=== PATIENT | female | born 1965 | race Caucasian/White ===

== ENCOUNTER 2023-01-29 06:57 | Emergency (ER) | payer BC ==
[2023-01-29] MEDS ORDERED: Ketorolac 60 MG/2 ML SDV IM ONE (07:45)
[2023-01-29] MEDS ORDERED: Ondansetron 4 MG/2 ML SDV IM ONE (07:45)
[2023-01-29] MEDS ORDERED: Midazolam 1 MG/ML 5 ML SDV IVPUSH ONE (08:19)
[2023-01-29] MEDS ORDERED: Sodium Chloride 0.9% 10 ML Syringe FLUSH PRN (08:24)
[2023-01-29] MEDS ORDERED: Midazolam 1 MG/ML 2 ML SDV IVPUSH ONE ×2 (08:30→09:00)
[2023-01-29] MEDS ORDERED: fentaNYL 100 MCG/2 ML SDV ONE (08:45)
[2023-01-29] MEDS ORDERED: fentaNYL 100 MCG/2 ML SDV IVPUSH ONE (08:47)
[2023-01-29] MEDS ORDERED: Naloxone 0.4 MG/ML SDV IVPUSH PRN (08:47)
== END 2023-01-29 10:20 | disposition home or self-care (01) ==
LOC: JD.ED 06:57
DX: S43.014A Anterior dislocation of right humerus, initial encounter (principal); Z79.899 Other long term (current) drug therapy; X50.1XXA Overexertion from prolonged static or awkward postures, initial encounter
CPT/HCPCS: 23650; 73020-26-RT; 73020-RT; 73030-26-RT; 73030-RT; 96372; 99283-25; J1885; J2250; J2405; J3010

== ENCOUNTER 2023-12-16 09:18 | Day surgery (SDC) | payer BC ==
[~2023-12-16 09:18] MED LIST: Lidocaine 1% 4 ML ONE; Lidocaine 1% PF 2 ML SDV ONE; Midazolam 1 MG/ML 2 ML SDV ONE; Propofol 200 MG/20 ML SDV ONE; Sodium Chloride 0.9% 10 ML Syringe FLUSH PRN; Sodium Chloride 0.9% 10 ML Syringe FLUSH SCH
[2023-12-16] MEDS: Lactated Ringers 1,000 ML IV SCH (09:45)
[2023-12-16] MEDS ORDERED: Lidocaine 1% 2 ML ONE (10:24)
== END 2023-12-16 11:27 | disposition home or self-care (01) ==
LOC: JD.SDS 09:18
PROVIDERS: ATTEND Surgery
DX: Z12.11 Encounter for screening for malignant neoplasm of colon (principal); K31.7 Polyp of stomach and duodenum; K21.00 Gastro-esophageal reflux disease with esophagitis, without bleeding; K64.0 First degree hemorrhoids; E78.00 Pure hypercholesterolemia, unspecified; Z79.899 Other long term (current) drug therapy
CPT/HCPCS: 43239; 45378; J2250; J2704; J7120; 00813; J3490

== ENCOUNTER 2024-02-10 07:30 | Observation (INO) | payer BC ==
[~2024-02-10 07:30] MED LIST changes: -Lidocaine 1% 4 ML ONE; -Lidocaine 1% PF 2 ML SDV ONE; -Midazolam 1 MG/ML 2 ML SDV ONE; -Propofol 200 MG/20 ML SDV ONE; -Sodium Chloride 0.9% 10 ML Syringe FLUSH SCH
[2024-02-10] MEDS: Lactated Ringers 1,000 ML IV SCH ×2 (09:40→21:00)
[2024-02-10 09:48] LABS: BASOPHILS ABSOLUTE AUTO 0.1 K/mm3 (0.0-0.2); BASOPHILS PERCENT AUTO 0.6 % (0.0-1.0); EOSINOPHILS ABSOLUTE AUTO 0.2 K/mm3 (0.0-0.4); EOSINOPHILS PERCENT AUTO 1.9 % (0.0-6.0); HEMATOCRIT 41.4 % (37.0-47.0); HEMOGLOBIN 13.8 gm/dl (12.0-16.0); IMMATURE GRAN ABSOLUTE AUTO 0.02 K/mm3 (0.00-0.05); IMMATURE GRAN PERCENT AUTO 0.2 % (0.0-0.4); LYMPHOCYTES ABSOLUTE AUTO 1.6 K/mm3 (1.0-4.8); LYMPHOCYTES PERCENT AUTO 18.8 % (24.0-44.0); MEAN CORPUSCULAR HEMOGLOBIN 29.7 pg (28.0-32.0); MEAN CORPUSCULAR HGB CONC 33.3 g/dl (32.0-36.0); MEAN PLATELET VOLUME 8.5 fl (9.4-12.3); MONOCYTES ABSOLUTE AUTO 0.6 K/mm3 (0.0-0.8); MONOCYTES PERCENT AUTO 6.4 % (0.0-8.0); NEUTROPHILS ABSOLUTE AUTO 6.2 K/mm3 (1.8-7.7); NEUTROPHILS PERCENT AUTO 72.1 % (41.0-71.0); PLATELET COUNT,PLT 259 K/mm3 (150-400); RED BLOOD CELL COUNT 4.65 M/mm3 (4.10-5.30); WHITE BLOOD CELL COUNT,WBC 8.56 K/mm3 (3.9-11.3)
[2024-02-10 10:01] LABS: ANION GAP 14.7 (5-15); BLOOD UREA NITROGEN,BUN 10 mg/dL (7-18); BUN/CREATININE RATIO 11.1 (14-18); CALCIUM 9.4 mg/dL (8.5-10.1); CARBON DIOXIDE,CO2 27 mEq/L (21-32); CHLORIDE,CL 101 mEq/L (98-107); CREATININE 0.9 mg/dL (0.55-1.02); ESTIMATED GFR 75 mL/min (>60); GLUCOSE RANDOM 87 mg/dL (70-99); SODIUM,NA 139 mEq/L (136-145)
[2024-02-10 10:05] LABS: POTASSIUM,K 3.7 mEq/L (3.5-5.1)
[2024-02-10] MEDS ORDERED: Propofol 200 MG/20 ML SDV ONE ×2 (10:36→13:50)
[2024-02-10] MEDS ORDERED: Midazolam 1 MG/ML 2 ML SDV ONE (10:36)
[2024-02-10] MEDS ORDERED: Ondansetron 4 MG/2 ML SDV ONE (10:36)
[2024-02-10] MEDS ORDERED: fentaNYL 250 MCG/5 ML SDV ONE (10:36)
[2024-02-10] MEDS ORDERED: Rocuronium 50 MG/5 ML Vial ONE ×2 (10:36→13:47)
[2024-02-10] MEDS ORDERED: Dexamethasone 4 MG/ML 5 ML MDV ONE (10:36)
[2024-02-10] MEDS ORDERED: Lidocaine 1% 5 ML VIAL ONE (10:36)
[2024-02-10] MEDS ORDERED: Ketorolac 30 MG/ML SDV ONE ×2 (10:43→14:41)
[2024-02-10] MEDS ORDERED: Sugammadex Sodium 200 MG/2 ML VIAL IV ONE ×2 (10:43→14:41)
[2024-02-10] MEDS ORDERED: fentaNYL 100 MCG/2 ML SDV ONE ×4 (11:03→13:42)
[2024-02-10] MEDS ORDERED: HYDROmorphone 0.5 MG/0.5 ML Syringe ONE ×3 (11:17→13:45)
[2024-02-10] MEDS ORDERED: dexmedeTOMIDine HCl 200 MCG/2 ML SDV ONE (11:18)
[2024-02-10] MEDS ORDERED: ceFAZolin 2 GM Vial ONE (12:58)
[2024-02-10] MEDS ORDERED: Phenylephrine 1% 10 MG/ML SDV ONE (13:01)
[2024-02-10] MEDS: EPINEPHrine 1 MG/ML SDV ONE (13:25)
[2024-02-10] MEDS: Bupivacaine 0.5% 30 ML SDV ONE (13:25)
[2024-02-10] MEDS ORDERED: Ketamine 200 MG/20 ML MDV ONE (13:29)
[2024-02-10] MEDS ORDERED: fentaNYL 100 MCG/2 ML SDV IVPUSH PRN (13:42)
[2024-02-10] MEDS ORDERED: Ondansetron 4 MG/2 ML SDV IVPUSH PRN (13:42)
[2024-02-10] MEDS ORDERED: HYDROmorphone 0.5 MG/0.5 ML Syringe IVPUSH PRN ×2 (13:42→14:53)
[2024-02-10] MEDS ORDERED: Lactated Ringers 1,000 ML ONE (14:16)
[2024-02-10] MEDS ORDERED: Promethazine 25 MG Tab PO PRN (14:53)
[2024-02-10] MEDS ORDERED: oxyCODONE 5 MG Tab PO PRN (14:53)
[2024-02-10] MEDS ORDERED: Acetaminophen 325 MG Tab PO PRN (14:53)
[2024-02-10] MEDS ORDERED: Simethicone 80 MG Tab.Chew PO PRN (14:59)
[2024-02-10] MEDS ORDERED: diphenhydrAMINE 50 MG/ML SDV IVPUSH PRN (15:00)
[2024-02-10] MEDS ORDERED: Benzocaine/Cetylpyridinium/Menthol Lozenge MUCMEM PRN (15:00)
[2024-02-10] MEDS: Ondansetron 4 MG Tab.DIS PO PRN (17:09)
[2024-02-10] MEDS: Ketorolac 15 MG/ML SDV IVPUSH SCH (17:09)
[2024-02-10] MEDS: Sodium Chloride 0.9% 10 ML Syringe FLUSH SCH (17:09)
[2024-02-11 04:46] LABS: HEMATOCRIT 35.7 % (37.0-47.0); HEMOGLOBIN 12.1 gm/dl (12.0-16.0); MEAN CORPUSCULAR HEMOGLOBIN 29.7 pg (28.0-32.0); MEAN CORPUSCULAR HGB CONC 33.9 g/dl (32.0-36.0); MEAN CORPUSCULAR VOLUME 87.7 fl (83.0-99.0); MEAN PLATELET VOLUME 9.1 fl (9.4-12.3); PLATELET COUNT,PLT 225 K/mm3 (150-400); RED BLOOD CELL COUNT 4.07 M/mm3 (4.10-5.30); WHITE BLOOD CELL COUNT,WBC 9.95 K/mm3 (3.9-11.3)
[2024-02-11 05:05] LABS: ANION GAP 13.7 (5-15); CALCIUM 8.8 mg/dL (8.5-10.1); CREATININE 0.8 mg/dL (0.55-1.02); EST CRCL DRUG DOSING (CG) 61.36 mL/min; POTASSIUM,K 4.7 mEq/L (3.5-5.1)
[2024-02-11] MEDS: Rosuvastatin 10 MG Tab PO SCH (08:50)
[2024-02-11] MEDS: Enoxaparin 40 MG/0.4 ML Syringe SUBCUT SCH (08:50)
[2024-02-11] MEDS: Tamsulosin 0.4 MG Cap.ER PO SCH (08:50)
== END 2024-02-11 10:46 | disposition home or self-care (01) ==
LOC: JD.MS 08:59 → INTOOBSV 08:59
PROVIDERS: ADMIT Surgery; ATTEND Surgery
DX: K44.9 Diaphragmatic hernia without obstruction or gangrene (principal)
CPT/HCPCS: 36415; 80048; 85025; 85027; 94761; A9270; J0171; J0665; J0690; J1100; J1171; J1650; J1885; J2250; J2371; J2405; J2704; J3010; J3490; J7120